=== PATIENT | male | born 1960 | race Caucasian/White ===

== ENCOUNTER 2024-03-12 09:26 | Outpatient (CLI) | payer MEDICARE, SELFPAY ==
[2024-03-12 09:44] LABS: Basophils Percent Auto 0.5 % (0.2-1.2); Eosinophils Absolute Auto 0.2 K/mm3 (0-0.3); Eosinophils Percent Auto 2.3 % (0-4.4); Hematocrit 44.1 % (42.0-52.0); Hemoglobin 14.3 g/dL (14.0-18.0); Immature Granulocyte Absolute 0.02 K/mm3 (0.00-0.031); Immature Granulocyte Percent A 0.3 % (0-0.5); Lymphocytes Absolute Auto 1.36 K/mm3 (0.9-3.2); Lymphocytes Percent Auto 21.1 % (18.3-44.2); Mean Corpuscular HGB Conc 32.4 g/dl (32-36); Mean Corpuscular Hemoglobin 30.2 pg (26-34); Monocytes Absolute Auto 0.7 K/mm3 (0.1-0.6); Monocytes Percent Auto 10.2 % (2.6-8.5); Neutrophils Absolute Auto 4.2 K/mm3 (1.3-6.7); Neutrophils Percent Auto 65.6 % (45.5-73.1); Platelet Count Result 243 k/mm3 (150-375); Red Blood Count 4.74 M/mm3 (4.6-6.20); Red Cell Distribution Width 12.7 % (11.5-14.5); White Blood Count 6.5 K/mm3 (4.5-10.0)
[2024-03-12 10:06] LABS: Alanine Aminotransferase 24 U/L (6-50); Albumin Level 4.3 g/dL (3.5-5.1); Alkaline Phosphatase 83 U/L (38-126); Anion Gap 4 mmol/L (4-12); Aspartate Amino Transferase 32 U/L (17-59); Bilirubin,Total 0.4 mg/dL (0.2-1.3); Blood Urea Nitrogen 21 mg/dL (9-20); Calcium 9.2 mg/dL (8.4-10.2); Carbon Dioxide 32 mmol/L (22-30); Chloride 102 mmol/L (98-107); Estimated Glomerular Filt Rate > 60; Glucose 86 mg/dL (65-110); Potassium 4.4 mmol/L (3.4-5.0); Sodium 138 mmol/L (137-145)
== END 2024-03-12 09:27 | disposition home or self-care (01) ==
LOC: ANHLAB 09:28
PROVIDERS: Student in an Organized Health Care Education/Training Program; PCP Family Medicine; Visit Provider Family Medicine
DX: F32.A Depression, unspecified (principal); Z00.00 Encounter for general adult medical examination without abnormal findings
CPT/HCPCS: 36415; 80053; 84443; 85025

== ENCOUNTER 2024-04-27 22:53 | Emergency (ER) | payer MEDICARE, SELFPAY ==
[2024-04-27] VITALS (7 sets, daily range): BP systolic 133–155; BP diastolic 79–89; PULSE 77–83; RESP 16–23; TEMP 36.8; O2SAT 97–100
--- NOTE | 2024-04-27 23:14 | ECG_ITS ---
Test Date: 2024-04-27 23:26:38 Measurements Intervals [place] Rate: 75 P: 70 [place]: 185 QRS: -14 QRSD: 93 T: 33 QT: 395 QTc: 441 Interpretive Statements SINUS RHYTHM BORDERLINE LEFT AXIS DEVIATION BORDERLINE ECG No previous ECG available for comparison Electronically Signed On 04-28-2024 12:28:14 CDT by Raciel Arteaga M.D.
[2024-04-27 23:25] LABS: Basophils Percent Auto 0.4 % (0.2-1.2); Eosinophils Absolute Auto 0.1 K/mm3 (0-0.3); Eosinophils Percent Auto 1.9 % (0-4.4); Hematocrit 38.2 % (42.0-52.0); Immature Granulocyte Absolute 0.02 K/mm3 (0.00-0.031); Immature Granulocyte Percent A 0.3 % (0-0.5); Lymphocytes Absolute Auto 1.62 K/mm3 (0.9-3.2); Lymphocytes Percent Auto 22.2 % (18.3-44.2); Mean Corpuscular Hemoglobin 30.9 pg (26-34); Mean Corpuscular Volume 90.7 fl (80-100); Mean Platelet Volume 9.9 fl (7.4-10.4); Monocytes Percent Auto 14.1 % (2.6-8.5); Neutrophils Absolute Auto 4.5 K/mm3 (1.3-6.7); Neutrophils Percent Auto 61.1 % (45.5-73.1); Platelet Count Result 197 k/mm3 (150-375); Red Blood Count 4.21 M/mm3 (4.6-6.20); Red Cell Distribution Width 12.6 % (11.5-14.5); White Blood Count 7.3 K/mm3 (4.5-10.0)
[2024-04-27 23:53] LABS: Alanine Aminotransferase 46 U/L (6-50); Albumin Level 3.9 g/dL (3.5-5.1); Alkaline Phosphatase 79 U/L (38-126); Anion Gap 10 mmol/L (4-12); Aspartate Amino Transferase 75 U/L (17-59); Bilirubin,Total 0.6 mg/dL (0.2-1.3); Blood Urea Nitrogen 13 mg/dL (9-20); Calcium 8.8 mg/dL (8.4-10.2); Carbon Dioxide 26 mmol/L (22-30); Chloride 98 mmol/L (98-107); Estimated CRCL calculation 88 ml/min; Estimated Glomerular Filt Rate > 60; Glucose 95 mg/dL (65-110); Potassium 3.5 mmol/L (3.4-5.0); Sodium 134 mmol/L (137-145)
[2024-04-28] VITALS (7 sets, daily range): BP systolic 140–154; BP diastolic 74–90; PULSE 64–85; RESP 15–26; O2SAT 96–100
[2024-04-28] MEDS: LORazepam INJ (*CRX) 2 MG/ML VIAL 1 MG IV PUSH (01:10)
[2024-04-28 01:18] LABS: Acetaminophen < 10 ug/mL (10-30); Ethanol < 10 mg/dL (<10); Salicylate < 1.0 mg/dL (2-20)
[2024-04-28 01:25] LABS: Add Urine Microscopic? NO; Appearance Urine Clear (Clear); Bilirubin Urine Negative (Negative); Blood Urine Negative (Negative); Color Urine Yellow (Yellow); Glucose Urine UA Negative (Negative); Ketones Urine 1+ mg/dL (Negative); Leukocyte Esterase Ur Negative LEU/UL (Negative); Nitrate Urine Negative (Negative); Protein Urine Negative (Negative); Specific Grav Ur 1.008 (1.001-1.035); Urobilinogen Urine 0.2 mg/dL (<2.0); pH Urine 7.5 (5.0-9.0)
[2024-04-28 01:42] LABS: Amphetamine Screen Urine Negative (Negative); Barbiturate Screen Urine Negative (Negative); Benzodiazepines Screen Urine Negative (Negative); Cannabinoid Screen Urine Negative (Negative); Cocaine Screen Urine Negative (Negative); Methadone Screen Urine Negative (Negative); Opiate Screen Urine Negative (Negative); Phencyclidine Screen Urine Negative (Negative)
--- NOTE | 2024-04-28 02:33 | ED.PSYCH ---
HPI - Psych General Chief Complaint: Altered Mental Status Stated Complaint: altered mental status Time Seen by Provider: 04/28/24 00:25 History of Present Illness HPI Narrative: Patient states that since he lost his job about a year ago he has had intermittent episodes of depression, has been slowly worsening. This was worsened by recent diagnosis of possible cerebellar stroke, and then a diagnosis of possible tumor in his brain, over last few months he has been feeling more depressed, feeling like he cannot sleep, losing his appetite and sense of taste. More recently he has had thoughts about killing himself Related Data Allergies Allergy/AdvReac Type Severity Reaction Status Date / Time No Known Allergies Allergy Unverified 03/12/24 08:14 Review of Systems Review of Systems: All systems reviewed & are unremarkable except as noted in HPI and below PMFSH Family History Family History Mother No problems noted. Sibling No problems noted. Father Acute myocardial infarction, Onset Age: 72 Parkinson disease Social History Social History (Updated 03/12/24 @ 08:31 by Diane Jain) Social History: Smoking status: Never smoker Second hand tobacco smoke exposure: No Alcohol intake: former Substance use: never Substance use type: unknown Do You Feel Safe in your Home?: Yes Lack of Transportation: No Lack of Food: Never True Current Housing: I Have Housing Concerned About Future Housing: No Difficulty Paying Gas/Electric Bills: No Difficulty Paying for Meds: No Currently Unemployed: YES Education: Bachelor's Degree Difficulty w/ Childcare or Family Care: No Living arrangements: with family Occupation/Education: retired Gender identity (if verbalized by the patient): Male Sexual Orientation (if Verbalized by the Patient): Straight or Heterosexual Exam Narrative: EXAMINATION OF ORGAN SYSTEMS/BODY AREAS: Constitutional: Vital signs per nursing GENERAL:[No acute distress, non-toxic appearing.] HEAD: Normal with no signs of head trauma. EYES: EOMI, conjunctiva normal ENT: Hearing grossly intact LUNGS: Nonlabored breathing. HEART: [Regular rate and rhythm] ABD: No distension EXT: Normal range of motion SKIN: [No rashes or lesions.] NEURO: [Alert and oriented x 3. No gross focal sensory or strength deficits.] PSYCH: Tired affect Course Vital Signs Vital signs: Vital Signs Pulse Rate 81 04/27/24 22:59 Respiratory Rate 16 04/27/24 22:59 Blood Pressure 155/86 H 04/27/24 22:59 Pulse Oximetry 98 04/27/24 22:59 Temperature 98.3 F 04/27/24 23:15 Pulse Rate 64 04/28/24 01:45 Respiratory Rate 15 04/28/24 01:45 Blood Pressure 150/74 H 04/28/24 01:45 Pulse Oximetry 96 04/28/24 01:45 Oxygen Delivery Room Air 04/27/24 23:15 MDM - Psych MDM Narrative Medical decision making narrative: Patient presents with worsening depression and suicidal thoughts over the last few months, exacerbated by a diagnosis of possible stroke and brain tumor, he is already on antidepressant prescribed by his doctor and is to follow-up with his neurologist for another MRI brain. He feels he has not been able to sleep well despite several medications prescribed for him by his doctor for this, and losing his appetite, and his is quite concerned about mental health. When asked if he had a concrete plan for how he would hurt himself, he mentions a shotgun in the basement. I did offer intake evaluation and he and agreeable to this. Medically clear for psychiatric evaluation. They have assessed him and feel he can be discharged in safe condition; the will get rid of the guns. Patient denies any other plans to hurt self. He is denying any current suicide ideation. They would prefer outpatient management, and he has follow-up with his doctor in 2 days, both your
== END 2024-04-28 05:50 | disposition home or self-care (01) ==
PROVIDERS: Emergency Provider Emergency Medicine; PCP Family Medicine
DX: F32.A Depression, unspecified (principal); Z79.899 Other long term (current) drug therapy; R94.31 Abnormal electrocardiogram [ECG] [EKG]
CPT/HCPCS: 36415; 80053; 80307; 81003; 84443; 85025; 93005; 96374; 99284; J2060

== ENCOUNTER 2025-04-06 10:01 | Outpatient (CLI) | payer MEDICARE, SELFPAY ==
--- OUTSIDE RECORDS SUMMARY | 2025-04-06 10:14 | XMS_ITS | Patient Health Record ---
Author Organization [facility] Address [address] [facility] [address] [place] [address] Care Team Providers Care Roving Winder Name Role Phone Damien ROMERO, Shruti Primary Care Provider Opal Mario Méndez Unavailable [phone] Benny Negrete Unavailable [phone] Allergies No Known Allergies Results Component Value Reference Range Notes UDT Reviewed date:05/18/2024 04:30:01 PM Interpretation: Performing Lab: Notes/Report: THC N 0 - 50 ng/ml Cocaine N 0 - 300 ng/ml Amphetamine N 0 - 1000 ng/ml Buprenorphine (BUP) N 0 - 10 ng/ml Secobarbital (Bar) N 0 - 300 ng/ml Oxazepam (BZO) N 0 - 300 ng/ml 6-lkehckjnil-3,6-ddnskurr-8,3-diphenylpyrrolidine (NORM P) N 0 - 300 ng/ml Methamphetamine (MET) N 0 - 1000 ng/ml Methylenedioxymethamphetamine (MDMA) N 0 - 500 ng/ml Morphine (MOP 300/LDH7209) N 0 - 300 ng/ml Methadone (MTD) N 0 - 300 ng/ml Phencyclidine (PCP) N 0 - 25 ng/ml Nortriptyline (TCA) N 0 - 1000 ng/ml Oxycodone N 0 - 300 ng/ml x N 0 - 300 ng/ml Reason For Referral No Information Medications Medication SIG (Take, Route, Frequency, Duration) Notes Start Date End Date Status PARoxetine HCl 40 MG Oral Active Aspirin 81 81 MG 1 tablet Orally Once a day Active Multivitamin - 1 tablet Orally Once a day Active Mirtazapine 15 MG TAKE 1 TABLET BY EVERYDAY AT BEDTIME Oral Active ALPRAZolam 0.25 MG 1 tablet Oral once a day As needed Active ARIPiprazole 2 MG 2 MG ORALLY EVERY DA Y AT BEDTIME Oral Active Atorvastatin Calcium 40 MG Oral; Duration: 90 Days Active Social History Tobacco Use: Social History Observation Description Date Details (start date - stop date) Never Smoker NA - NA Sex Assigned At : Social History Observation Description Sex Assigned At Male Tobacco Control (Standard) Question Answer Notes Tobacco use: Nonsmoker AUDIT-C (Standard) Question Answer Notes Points 1 Did you have a drink contain ing alcohol in the past year? Yes How often did you have six o r more drinks on one occasion in the past year? Never (0 point) How many drinks did you have on a typical day when you were drinking in the past year? 1 or 2 drinks (0 point) How often did you have a dri nk containing alcohol in the past year? Monthly or less (1 point) Problems Problem Type SNOMED Code ICD Code Onset Dates Problem Status W/U Status Risk Notes Problem Generalized anxiety disorder (56934931) FRANCIS (generalized anxiety disorder) (F41.1) Active confirmed Problem Severe major depression, single episode, without psychotic features (43695958) Current severe episode of major depressive disorder without psychotic features without prior episode (F32.2) Active confirmed Problem Insomnia due to mental disorder (79297658) Insomnia due to mental disorder (F51.05) Active confirmed Problem Insomnia disorder related to another mental disorder (53263833) Psychophysiological insomnia (F51.04) Active confirmed Vital Signs Heart Rate 92 /min 05/29/2024 Blood pressure diastolic 83 mm Hg 05/29/2024 Weight-kg 88.99 kg 05/29/2024 Blood pressure systolic 136 mm Hg 05/29/2024 Weight 196.2 lbs 05/29/2024 Encounters Encounter Location Date Provider Diagnosis [facility] [facility] [address] [place] [address] 05/16/2024 Benny Clubb Current severe episo de of major depressive disorder without psychotic features without prior episode F32.2 ; FRANCIS (generalized anxiety disorder) F41.1 and Psychophysiological insomnia F51.04 [facility] [address] [facility] [address] [place] [address] 05/29/2024 Benny Clubb MDD (major depressiv e disorder), recurrent episode, mild F33.0 ; FRANCIS (generalized anxiety disorder) F41.1 and Insomnia due to mental disorder F51.05 Assessments Encounter Date Diagnosis (ICD Code) Assessment Notes Treatment Notes Treatment Clinical Notes Section Notes 05/16/2024 FRANCIS (generalized anxiety disorder) (ICD-10 - F41.1) 1. Major Depressive Disorder - Continue current medications: Alprazolam 0.25mg PRN, Paroxetine 40mg daily, Mirtazapine, and Aripiprazole. - Encourage therapy sessions. Recommend walk-in clinic on Sunday for initial appointment. - Monitor depressive symptoms like sleep, appetite, energy, and suicidal ideation. - Patient reports improved sleep with current regimen. - Patient experiencing loss of interest in previously enjoyed activities. 2. Anxiety - Continue Alprazolam 0.25mg PRN for emergency use (prescribed by primary care provider). - Monitor anxiety levels and restlessness at follow-ups. - Patient reports reduced anxiety with current medication. 3. Insomnia - Continue Mirtazapine for sleep improvement. - Monitor sleep patterns and quality at follow-ups. - Patient reports improved sleep, able to fall back asleep after waking. 4. Weight Loss and Decreased Appetite - Encourage balanced diet and regular eating. - Monitor weight and appetite at follow-ups. - Patient reports significant 20 pound weight loss and muscle mass loss. - Patient experiencing altered taste, making eating difficult. 5. Cognitive Difficulties - Monitor cognitive function at follow-ups. - Consider further evaluation if difficulties persist or worsen. - Patient reports ongoing short-term memory issues and difficulty concentrating. - possibly a symptom of stroke history 6. History of Cerebellar Lesions and Stroke - Continue monitoring by PCP and neurologist. - Ensure appropriate care and follow-up for these conditions. - Patient has multiple right cerebellar lesions and left cerebellar stroke evidence. 7. Suicidal Ideation - Ensure firearms remain out of patient's home. Patient confirms guns removed. - Encourage reaching out if experiencing self-harm thoughts. - Monitor suicidal ideation at follow-ups. - Provided crisis hotline information. 9. General Health Maintenance - Continue Aspirin 81mg and multivitamin daily. - Encourage regular physical activity as tolerated. - Monitor overall health and well-being at follow-ups. - Recent bloodwork (3 weeks ago) reported normal. 05/16/2024 Current severe episo de of major depressive disorder without psychotic features without prior episode (ICD-10 - F32.2) 1. Major Depressive Disorder - Continue current medications: Alprazolam 0.25mg PRN, Paroxetine 40mg daily, Mirtazapine, and Aripiprazole. - Encourage therapy sessions. Recommend walk-in clinic on Sunday for initial appointment. - Monitor depressive symptoms like sleep, appetite, energy, and suicidal ideation. - Patient reports improved sleep with current regimen. - Patient experiencing loss of interest in previously enjoyed activities. 2. Anxiety - Continue Alprazolam 0.25mg PRN for emergency use (prescribed by primary care provider). - Monitor anxiety levels and restlessness at follow-ups. - Patient reports reduced anxiety with current medication. 3. Insomnia - Continue Mirtazapine for sleep improvement. - Monitor sleep patterns and quality at follow-ups. - Patient reports improved sleep, able to fall back asleep after waking. 4. Weight Loss and Decreased Appetite - Encourage balanced diet and regular eating. - Monitor weight and appetite at follow-ups. - Patient reports significant 20 pound weight loss and muscle mass loss. - Patient experiencing altered taste, making eating difficult. 5. Cognitive Difficulties - Monitor cognitive function at follow-ups. - Consider further evaluation if difficulties persist or worsen. - Patient reports ongoing short-term memory issues and difficulty concentrating. - possibly a symptom of stroke history 6. History of Cerebellar Lesions and Stroke - Continue monitoring by PCP and neurologist. - Ensure appropriate care and follow-up for these conditions. - Patient has multiple right cerebellar lesions and left cerebellar stroke evidence. 7. Suicidal Ideation - Ensure firearms remain out of patient's home. Patient confirms guns removed. - Encourage reaching out if experiencing self-harm thoughts. - Monitor suicidal ideation at follow-ups. - Provided crisis hotline information. 9. General Health Maintenance - Continue Aspirin 81mg and multivitamin daily. - Encourage regular physical activity as tolerated. - Monitor overall health and well-being at follow-ups. - Recent bloodwork (3 weeks ago) reported normal. 05/29/2024 FRANCIS (generalized anxiety disorder) (ICD-10 - F41.1) 1. Major Depressive Disorder - Patient reports improvement in depressive symptoms since medication change. - Continue current medications: Paxil 40mg, mirtazapine 15mg, aripiprazole 2mg at bedtime. - Follow-up in 1 month to assess stability and discuss continuation of care with PCP or referral to psychiatrist. 2. Generalized Anxiety Disorder - Patient reports minimal anxiety symptoms since medication change.. - Continue alprazolam 0.25mg as needed, though patient reports not needing it recently. - Monitor anxiety symptoms at 1 month follow-up. 3. Cleanliness Phobia - Patient reports recent cleanliness/dir t phobia but no intense fear. - As long as phobia remains manageable, no medication changes needed currently. - Reassess phobia at 1 month follow-up. 4. Medication Management - Current meds: multivitamin, aspirin 81mg, atorvastatin, Paxil 40mg, mirtazapine 15mg, aripiprazole 2mg at bedtime, alprazolam 0.25mg as needed. - No medication changes at this time. - Reevaluate medications at 1 month follow-up. 5. Follow-Up Plan - Schedule 1 month follow-up after next PCP visit. - Discuss continuing care with PCP or transitioning to psychiatrist for longer-term management. 05/29/2024 MDD (major depressiv e disorder), recurrent episode, mild (ICD-10 - F33.0) 1. Major Depressive Disorder - Patient reports improvement in depressive symptoms since medication change. - Continue current medications: Paxil 40mg, mirtazapine 15mg, aripiprazole 2mg at bedtime. - Follow-up in 1 month to assess stability and discuss continuation of care with PCP or referral to psychiatrist. 2. Generalized Anxiety Disorder - Patient reports minimal anxiety symptoms since medication change.. - Continue alprazolam 0.25mg as needed, though patient reports not needing it recently. - Monitor anxiety symptoms at 1 month follow-up. 3. Cleanliness Phobia - Patient reports recent cleanliness/dir t phobia but no intense fear. - As long as phobia remains manageable, no medication changes needed currently. - Reassess phobia at 1 month follow-up. 4. Medication Management - Current meds: multivitamin, aspirin 81mg, atorvastatin, Paxil 40mg, mirtazapine 15mg, aripiprazole 2mg at bedtime, alprazolam 0.25mg as needed. - No medication changes at this time. - Reevaluate medications at 1 month follow-up. 5. Follow-Up Plan - Schedule 1 month follow-up after next PCP visit. - Discuss continuing care with PCP or transitioning to psychiatrist for longer-term management. 05/29/2024 Insomnia due to ment al disorder (ICD-10 - F51.05) 1. Major Depressive Disorder - Patient reports improvement in depressive symptoms since medication change. - Continue current medications: Paxil 40mg, mirtazapine 15mg, aripiprazole 2mg at bedtime. - Follow-up in 1 month to assess stability and discuss continuation of care with PCP or referral to psychiatrist. 2. Generalized Anxiety Disorder - Patient reports minimal anxiety symptoms since medication change.. - Continue alprazolam 0.25mg as needed, though patient reports not needing it recently. - Monitor anxiety symptoms at 1 month follow-up. 3. Cleanliness Phobia - Patient reports recent cleanliness/dir t phobia but no intense fear. - As long as phobia remains manageable, no medication changes needed currently. - Reassess phobia at 1 month follow-up. 4. Medication Management - Current meds: multivitamin, aspirin 81mg, atorvastatin, Paxil 40mg, mirtazapine 15mg, aripiprazole 2mg at bedtime, alprazolam 0.25mg as needed. - No medication changes at this time. - Reevaluate medications at 1 month follow-up. 5. Follow-Up Plan - Schedule 1 month follow-up after next PCP visit. - Discuss continuing care with PCP or transitioning to psychiatrist for longer-term management. 05/16/2024 Psychophysiological insomnia (ICD-10 - F51.04) 1. Major Depressive Disorder - Continue current medications: Alprazolam 0.25mg PRN, Paroxetine 40mg daily, Mirtazapine, and Aripiprazole. - Encourage therapy sessions. Recommend walk-in clinic on Sunday for initial appointment. - Monitor depressive symptoms like sleep, appetite, energy, and suicidal ideation. - Patient reports improved sleep with current regimen. - Patient experiencing loss of interest in previously enjoyed activities. 2. Anxiety - Continue Alprazolam 0.25mg PRN for emergency use (prescribed by primary care provider). - Monitor anxiety levels and restlessness at follow-ups. - Patient reports reduced anxiety with current medication. 3. Insomnia - Continue Mirtazapine for sleep improvement. - Monitor sleep patterns and quality at follow-ups. - Patient reports improved sleep, able to fall back asleep after waking. 4. Weight Loss and Decreased Appetite - Encourage balanced diet and regular eating. - Monitor weight and appetite at follow-ups. - Patient reports significant 20 pound weight loss and muscle mass loss. - Patient experiencing altered taste, making eating difficult. 5. Cognitive Difficulties - Monitor cognitive function at follow-ups. - Consider further evaluation if difficulties persist or worsen. - Patient reports ongoing short-term memory issues and difficulty concentrating. - possibly a symptom of stroke history 6. History of Cerebellar Lesions and Stroke - Continue monitoring by PCP and neurologist. - Ensure appropriate care and follow-up for these conditions. - Patient has multiple right cerebellar lesions and left cerebellar stroke evidence. 7. Suicidal Ideation - Ensure firearms remain out of patient's home. Patient confirms guns removed. - Encourage reaching out if experiencing self-harm thoughts. - Monitor suicidal ideation at follow-ups. - Provided crisis hotline information. 9. General Health Maintenance - Continue Aspirin 81mg and multivitamin daily. - Encourage regular physical activity as tolerated. - Monitor overall health and well-being at follow-ups. - Recent bloodwork (3 weeks ago) reported normal. 05/16/2024 Other Learning About Depression Screening material was printed Assessment and plan reviewed with patient Call for problems with medication, side effects or need for dosage change Continue current therapy. Discussed potential for combination of Remeron and Paroxetine to increase serotonin. Medication side effects discussed with the patient Patient education materials were given to the patient Treatment options reviewed 1. Major Depressive Disorder - Continue current medications: Alprazolam 0.25mg PRN, Paroxetine 40mg daily, Mirtazapine, and Aripiprazole. - Encourage therapy sessions. Recommend walk-in clinic on Sunday for initial appointment. - Monitor depressive symptoms like sleep, appetite, energy, and suicidal ideation. - Patient reports improved sleep with current regimen. - Patient experiencing loss of interest in previously enjoyed activities. 2. Anxiety - Continue Alprazolam 0.25mg PRN for emergency use (prescribed by primary care provider). - Monitor anxiety levels and restlessness at follow-ups. - Patient reports reduced anxiety with current medication. 3. Insomnia - Continue Mirtazapine for sleep improvement. - Monitor sleep patterns and quality at follow-ups. - Patient reports improved sleep, able to fall back asleep after waking. 4. Weight Loss and Decreased Appetite - Encourage balanced diet and regular eating. - Monitor weight and appetite at follow-ups. - Patient reports significant 20 pound weight loss and muscle mass loss. - Patient experiencing altered taste, making eating difficult. 5. Cognitive Difficulties - Monitor cognitive function at follow-ups. - Consider further evaluation if difficulties persist or worsen. - Patient reports ongoing short-term memory issues and difficulty concentrating. - possibly a symptom of stroke history 6. History of Cerebellar Lesions and Stroke - Continue monitoring by PCP and neurologist. - Ensure appropriate care and follow-up for these conditions. - Patient has multiple right cerebellar lesions and left cerebellar stroke evidence. 7. Suicidal Ideation - Ensure firearms remain out of patient's home. Patient confirms guns removed. - Encourage reaching out if experiencing self-harm thoughts. - Monitor suicidal ideation at follow-ups. - Provided crisis hotline information. 9. General Health Maintenance - Continue Aspirin 81mg and multivitamin daily. - Encourage regular physical activity as tolerated. - Monitor overall health and well-being at follow-ups. - Recent bloodwork (3 weeks ago) reported normal. 05/29/2024 Other Assessment and plan reviewed with patient Discussed medication side effects Treatment options reviewed Discussed the risks/benefit s of this medication 1. Major Depressive Disorder - Patient reports improvement in depressive symptoms since medication change. - Continue current medications: Paxil 40mg, mirtazapine 15mg, aripiprazole 2mg at bedtime. - Follow-up in 1 month to assess stability and discuss continuation of care with PCP or referral to psychiatrist. 2. Generalized Anxiety Disorder - Patient reports minimal anxiety symptoms since medication change.. - Continue alprazolam 0.25mg as needed, though patient reports not needing it recently. - Monitor anxiety symptoms at 1 month follow-up. 3. Cleanliness Phobia - Patient reports recent cleanliness/dir t phobia but no intense fear. - As long as phobia remains manageable, no medication changes needed currently. - Reassess phobia at 1 month follow-up. 4. Medication Management - Current meds: multivitamin, aspirin 81mg, atorvastatin, Paxil 40mg, mirtazapine 15mg, aripiprazole 2mg at bedtime, alprazolam 0.25mg as needed. - No medication changes at this time. - Reevaluate medications at 1 month follow-up. 5. Follow-Up Plan - Schedule 1 month follow-up after next PCP visit. - Discuss continuing care with PCP or transitioning to psychiatrist for longer-term management. Plan Of Treatment No Information Insurance Providers Payer Name Payer Address Payer Phone Subscriber Number Group Number Insured Name Patient Relationship to Insured Coverage Start Date Coverage End Date Bessie BAZZI [address] [address] [place] [address] [id number] ePte Davis Self - patient is the insured Medical (General) History Medical History History ICD Code abdominal aortic aneurysm: No atrial fibrillation: No chronic fatigue syndrome: No essential tremor: No hyperlipidemia: No hypertension: No Parkinson's disease: No restless leg syndrome: No stroke: Yes subdural hematoma: No type 1 diabetes mellitus: No type 2 diabetes mellitus: No vitamin B12 deficiency: No vitamin D deficiency: No stroke lesions on the right cerebellum
--- OUTSIDE RECORDS SUMMARY | 2025-04-06 10:14 | XMS_ITS | Referral Summary ---
Author Organization [facility] Address [facility] [place] [address] Care Team Providers Care Plate Grainer Name Role Phone Shruti Quezada MD Primary Care Provider Encounters Date Type Department Care Team Description 04/03/2025 11:30 AM CDT Office Visit [facility] [address] [place] [address] [address] [place] [address] Jonathon Early MD Unspecified sequelae of cerebral infarction (Primary Dx); Snoring; Brain lesion from Last 3 Months Allergies No known active allergies Medications FLUoxetine (PROzac) 20 mg capsule Take 2 capsules (40 mg total) by mouth daily 03/12/2024 Active traZODone (DESYREL) 50 mg tablet Take 1 tablet (50 mg total) by mouth nightly 03/12/2024 Active aspirin 81 mg enteric coated tablet Take 1 tablet (81 mg total) by mouth daily Active melatonin 10 mg tablet Take 1 tablet (10 mg total) by mouth nightly Active atorvastatin (LIPITOR) 40 mg tablet TAKE 1 TABLET BY MOUTH EVERY DAY 90 tablet 3 02/16/2025 Active ARIPiprazole (ABILIFY) 2 mg tablet Take 1 tablet (2 mg total) by mouth nightly at bedtime Active PARoxetine (PAXIL) 40 mg tablet Take 1 tablet (40 mg total) by mouth daily Active mirtazapine (REMERON) 15 mg tablet Take 1 tablet (15 mg total) by mouth nightly at bedtime. Active Active Problems Problem Noted Date Diagnosed Date Snoring 03/28/2024 Unspecified sequelae of cerebral infarction 03/17 Brain lesion 03/04/2024 Social History Tobacco Use Types Packs/Day Years Used Date Smoking Tobacco: Never Tobacco Cessation:Counseling Given: Not Answered AUDIT-C Answer Date Recorded Q1: How often do you have a drink containing alc ohol? Monthly or less 03/05/2024 Q2: How many drinks containi ng alcohol do you have on a typical day when you are drinking? 1 or 2 03/05/2024 Frequency of Binge Drinking Not on file 02/15 Sex and Gender Information Value Date Recorded Sex Assigned at Not on file Legal Sex Male 1:30 PM CDT Gender Identity Not on file Sexual Orientation Not on file Last Filed Vital Signs Vital Sign Reading Time Taken Comments Blood Pressure 150/87 04/03/2025 11:13 AM CDT Pulse 88 04/03/2025 11:13 AM CDT Temperature 36.9 C (98.5 F) 04/03/2025 11:13 AM CDT Respiratory Rate - - Oxygen Saturation 94% 04/03/2025 11:13 AM CDT Inhaled Oxygen Concentration - - Weight 110.9 kg (244 lb 8 oz) 04/03/2025 11:13 A M CDT Height 185.4 cm (6' 1) 04/03/2025 11:13 AM CDT Body Mass Index 32.26 04/03/2025 11:13 AM CDT Plan of Treatment Not on file Insurance [employer] MEDICARE HMO [facility] MEDICARE HMO Care Teams Plate Grainer Relationship Specialty Start Date End Date Shruti Quezada MD [address] [facility] [address] [place] [address] PCP - General Family Medicine 02/26/24
--- OUTSIDE RECORDS SUMMARY | 2025-04-06 10:14 | XMS_ITS | Clinical Summary ---
Author Organization [facility] Address [address] [place] [address] Care Team Providers Care Continuous Improvement Engineer Name Role Phone Shruti Quezada MD Primary Care Provider Allergies No known active allergies Medications FLUoxetine [...] of cerebral infarction 03/17 Brain lesion 03/04/2024 Encounters Date Type Department Care Team Description 04/03/2025 11:30 AM CDT Office Visit [facility] Stroke [address] [facility] 6[address] [place] [address] Jonathon Early MD Unspecified sequelae of cerebral infarction (Primary Dx); Snoring; Brain lesion from Last 3 Months Medical History Medical History Date Comments Brain tumor (benign) (HCC) Family History Medical History Relation Name Comments Heart disease Father Hypertension Father Stroke Paternal Grandfather Diabetes Paternal Grandmother Stroke Paternal Grandmother Cancer Sister Relation Name Status Comments Father Paternal Grandfather Paternal Grandmother Sister Social History Tobacco Use Types Packs/Day Years [...] on file Sexual Orientation Not on file Obstetrics History Last Filed Vital Signs Vital Sign Reading [...] 04/03/2025 11:13 AM CDT Plan of Treatment Health Maintenance Due Date Last Done Comments Colon Cancer Screening-Colonoscopy 1959 Depression Screening 1959 Fall Risk Assessment 1959 Hepatitis C Screening 1959 Prostate Cancer Screening-PSA 1959 DTaP/Tdap/Td Vaccine (1 - Tdap) 1970 Hepatitis B Screening 1977 Pneumococcal vaccine 65+ (1 of 1 - PCV) 2009 Zoster Vaccine (1 of 2) 2009 Well Visit 65+ 01/03/2024 Covid-19 Vaccine (2023-2 5 season) 2024 08/22/2022, 01/11/2022, 08/04/2021, Additional history exists Influenza Vaccine (#1) 2025 Insurance [employer] MEDICARE HMO [facility] MEDICARE HMO Care Teams Continuous Improvement Engineer Relationship Specialty Start Date End Date Shruti Quezada MD [address] [facility] [address] [place] [address] PCP - General Family Medicine 02/26/24
--- OUTSIDE RECORDS SUMMARY | 2025-04-06 10:14 | XMS_ITS | Clinical Summary ---
Author Organization [facility] Address [address] [place] [id number] Care Team Providers Care Bail Bondsman Name Role Phone None, Provider Primary Care Provider Unavaila ble Social History Tobacco Use Types Packs/Day Years Used Date Smoking Tobacco: Never Assessed Sex and Gender Information Value Date Recorded Sex Assigned at Not on file Legal Sex Male 12:21 PM CDT Gender Identity Not on file Sexual Orientation Not on file Plan of Treatment Health Maintenance Due Date Last Done Comments Colorectal Cancer Screening Colonoscopy (10 Years) 1959 Hepatitis C 1977 DTaP, Tdap and Td Vaccines (1 - Tdap) 1978 Pneumococcal Vaccine: 50+ Years (1 of 1 - PCV) 2009 Zoster Vaccines (1 of 2) 2009 COVID-19 Vaccine ( - season) 2024 08/22/2022, 01/11/2022, 08/04/2021, Additional history exists RSV Immunization or 60+ Years (1 - 1-dose 75+ series) 2034 Meningococcal B Vaccine Aged Out No l onger eligible based on patient's age to complete this topic Meningococcal Vaccine Aged Out No gianni jd eligible based on patient's age to complete this topic RSV Immunizations Under 20 Months Aged Out No longer eligible based on patient's age to complete this topic Insurance [facility] Care Teams Bail Bondsman Relationship Specialty Start Date End Date None, Provider, MD PCP - General UNKNOWN PHYSICIAN SPECIALTY 01/23/24
[2025-04-06 10:34] LABS: Hematocrit 43.1 % (42.0-52.0); Hemoglobin 14.1 g/dL (14.0-18.0); Immature Granulocyte Percent A 0.4 % (0-0.5); Lymphocytes Absolute Auto 1.56 K/mm3 (0.9-3.2); Mean Corpuscular HGB Conc 32.7 g/dl (32-36); Mean Corpuscular Hemoglobin 30.0 pg (26-34); Mean Corpuscular Volume 91.7 fl (80-100); Nucleated Red Blood Cells Absolute Auto 0.000 K/mm3 (0.0-0.012); Nucleated Red Blood Cells Perc 0.0 % (0.0-0.2); Platelet Count Result 209 k/mm3 (150-375); Red Blood Count 4.70 M/mm3 (4.6-6.20); White Blood Count 5.7 K/mm3 (4.5-10.0)
[2025-04-06 10:54] LABS: Alanine Aminotransferase 54 U/L (6-50); Albumin Level 4.2 g/dL (3.5-5.1); Alkaline Phosphatase 103 U/L (38-126); Anion Gap 6 mmol/L (4-12); Aspartate Amino Transferase 42 U/L (17-59); Bilirubin,Total 0.4 mg/dL (0.2-1.3); Blood Urea Nitrogen 14 mg/dL (9-20); Calcium 9.2 mg/dL (8.4-10.2); Carbon Dioxide 27 mmol/L (22-30); Chloride 104 mmol/L (98-107); Estimated Glomerular Filt Rate > 60; Glucose 93 mg/dL (65-110); Potassium 4.1 mmol/L (3.4-5.0); Sodium 137 mmol/L (137-145); Total Protein 7.4 g/dL (6.3-8.2)
[2025-04-06 11:30] LABS: Prostate Specific Antigen 1.7 ng/mL (< OR = 4.0); Thyroid Stimulating Hormone 2.250 uIU/mL (0.465-4.680)
[2025-04-07 09:45] LABS: Cholesterol 163 mg/dL (0-200); HDL Direct 63 mg/dL; Triglycerides 102 mg/dL (<150)
== END 2025-04-06 10:02 | disposition home or self-care (01) ==
PROVIDERS: PCP Family Medicine; Visit Provider Student in an Organized Health Care Education/Training Program
DX: Q04.8 Other specified congenital malformations of brain (principal); D36.10 Benign neoplasm of peripheral nerves and autonomic nervous system, unspecified; Z13.29 Encounter for screening for other suspected endocrine disorder; Z13.220 Encounter for screening for lipoid disorders; Z86.73 Personal history of transient ischemic attack (TIA), and cerebral infarction without residual deficits; E78.5 Hyperlipidemia, unspecified; R00.0 Tachycardia, unspecified; Z12.5 Encounter for screening for malignant neoplasm of prostate
CPT/HCPCS: 36415; 80053; 80061; 84153; 84443; 85025; G0103